=== PATIENT | female | born 1975 | race Caucasian/White ===

== ENCOUNTER 2024-09-07 07:00 | Emergency (ER) | payer MEDICAID, OTHER ==
[~2024-09-07] VITALS: Ht 160 cm; Wt 65.0 kg
[2024-09-07 07:19] VITALS: BP 142/73; PULSE 107; RESP 13; TEMP 98.4; O2SAT 96
[2024-09-07] MEDS: HALOPERIDOL LACTATE 5MG/ML VIAL IM ONE (07:39)
== END 2024-09-07 07:55 | disposition left against medical advice (07) ==
LOC: ER 07:00
DX: R41.82 Altered mental status, unspecified (principal); Z88.0 Allergy status to penicillin; Z86.59 Personal history of other mental and behavioral disorders
CPT/HCPCS: 99283